=== PATIENT | female | born 1940 | race Caucasian/White ===

== ENCOUNTER 2019-05-20 08:34 | Inpatient (IN) | payer MEDICARE ==
[2019-05-19 09:22] VITALS: BMI 35.3
--- NOTE | 2019-05-19 13:41 | HP ---
HISTORY OF PRESENT ILLNESS: Ms. Bliss presents for evaluation of a C4 radicular pattern of pain. She has history of prior anterior cervical diskectomy at C4-C7 and what appears to be adjacent spondylolisthesis at C3-C4. CT scan performed at [facility], this appears to well explain the symptoms she is experiencing. This fits her pain well. She would like to treat this surgically if possible. PAST MEDICAL HISTORY: Significant for hypertension, hyperlipidemia, anxiety, and chronic pain syndrome. CURRENT MEDICATIONS: 1. Celexa. 2. Eliquis. 3. Omeprazole. 4. Lyrica. 5. Tramadol. 6. Donepezil. 7. Alprazolam. 8. Pravastatin. 9. Lisinopril. PAST SURGICAL HISTORY: Appendectomy, two benign masses removed from the left breast, hysterectomy, cataract resection, mastectomy, adrenal gland resection, right hip replacement, left knee replacement, and ACDF. PHYSICAL EXAMINATION: The patient is alert and oriented x3. Upper extremity motor exam is normal. She does have restricted range of motion of the cervical spine. ASSESSMENT: Cervical radiculopathy. PLAN: Dr. Phillip met with the patient, reviewed imaging, and advocated for reoperation C3-C4 ACDF. He explained to the patient the risks, benefits, and alternatives to the procedure. The patient expressed understanding and elected to move forward with surgery as discussed. I do believe the patient is mentally competent and capable of making medical decisions for herself. We will move forward with surgery as planned. Job ID: [id number]
[2019-05-27] MEDS ORDERED: Fentanyl 100 MCG/2 ML VIAL ONE ×4 (07:37→10:58)
[2019-05-27] MEDS ORDERED: Thrombin 5000 UNITS/5 ML VIAL ONE (09:06)
[2019-05-27] MEDS ORDERED: SUGAMMADEX SODIUM 200 MG/2 ML VIAL ONE (09:33)
--- NOTE | 2019-05-27 09:35 | OP ---
DATE OF PROCEDURE: 05/27/2019 [employer]IDENTIAL [employer] CONSULTANT: River Islas PA-C INDICATION: Pain. DIAGNOSIS: Cervical radiculopathy. PROCEDURES PERFORMED: Reoperation of anterior cervical diskectomy and fusion, C3-C4. ANESTHESIA: General. DESCRIPTION OF PROCEDURE: The patient was brought into the operating room, placed under general anesthesia. She was placed on table in supine position. A transverse incision was planned over the lateral aspect of the neck on the right. After prepping and draping and after an appropriate preoperative pause, the incision was created. The underlying platysma muscle was identified and incised. A blunt tissue plane anterior to the sternocleidomastoid muscle was used to gain access to the prevertebral space. An anterior cervical plate was identified as was the superior margin of that plate. There was ectopic bone growth around the plate, which moved into a cephalad direction. We had a drill off the fusion construct with the top in order to gain access to the disk space. The disk material was then removed as were anterior and posterior osteophytes. There was a small amount of epidural bleeding, which required the placement of one pledget of Gelfoam. A 6-mm interbody PEEK was then placed. The procedure then came to an end without known complication. Job ID: [id number]
[2019-05-27] MEDS ORDERED: Metoprolol Tartrate 5 MG/5 ML VIAL ONE (11:07)
[2019-05-27] MEDS ORDERED: Lidocaine 1% PF 5 ML VIAL ONE (12:05)
[2019-05-27] MEDS ORDERED: Rocuronium Bromide 10 MG/ML (10ML VIAL) ONE (12:05)
[2019-05-27] MEDS ORDERED: Ondansetron PF 4 MG/2 ML Vial ONE (12:05)
[2019-05-27] MEDS ORDERED: Esmolol 100 MG/10 ML VIAL ONE (12:05)
[2019-05-27] MEDS ORDERED: PROPOFOL 200 MG/20 ML VIAL ONE (12:05)
[2019-05-27] MEDS ORDERED: Glycopyrrolate 0.2 MG/ML 5 ML SYRINGE ONE (12:05)
[2019-05-27] MEDS ORDERED: ePHEDrine/0.9% NaCl/PF SYRINGE 50 mg/10 ml ONE (12:05)
[2019-05-27] MEDS ORDERED: Dexamethasone 20 MG/5 ML VIAL ONE (12:05)
== END 2019-05-27 12:55 | disposition home or self-care (01) | DRG 473 ==
LOC: SURG A 05-27 06:41
PROVIDERS: ADMIT Neurological Surgery; ATTEND Neurological Surgery
PROC: 0RG10A0 Fusion of Cervical Vertebral Joint with Interbody Fusion Device, Anterior Approach, Anterior Column, Open Approach (ICD-10-PCS; principal; 2019-05-27)
PROC: 0RB30ZZ Excision of Cervical Vertebral Disc, Open Approach (ICD-10-PCS; 2019-05-27)
DX: M43.12 Spondylolisthesis, cervical region (principal); M54.12 Radiculopathy, cervical region; M25.78 Osteophyte, vertebrae; I10 Essential (primary) hypertension; E78.5 Hyperlipidemia, unspecified; G89.4 Chronic pain syndrome; J45.909 Unspecified asthma, uncomplicated; G47.30 Sleep apnea, unspecified; F03.90 Unspecified dementia, unspecified severity, without behavioral disturbance, psychotic disturbance, mood disturbance, and anxiety; E66.9 Obesity, unspecified; F41.0 Panic disorder [episodic paroxysmal anxiety]; Z96.641 Presence of right artificial hip joint; Z96.652 Presence of left artificial knee joint; Z85.3 Personal history of malignant neoplasm of breast; R32 Unspecified urinary incontinence; Z90.710 Acquired absence of both cervix and uterus; Z68.35 Body mass index [BMI] 35.0-35.9, adult; Z79.01 Long term (current) use of anticoagulants; Z79.899 Other long term (current) drug therapy; Z79.51 Long term (current) use of inhaled steroids; Z98.1 Arthrodesis status
CPT/HCPCS: 76000; C1776; J0690; J1100; J2001; J2405; J2704; J3010